=== PATIENT | male | born 1955 | race Two or more races ===

== ENCOUNTER 2020-02-25 17:40 | Inpatient (IN) | payer OTHER ==
[~2020-02-25] VITALS: Ht 167.6 cm; Wt 83.8 kg
[2020-02-25 18:50] LABS: Basophils # (auto) 0 10 ^3/uL (0-0.2); Eosinophils # (auto) 0 10 ^3/uL (0-0.8); Lymphocytes # (auto) 2.2 10 ^3/uL (0.4-5.4); Neutrophils # (auto) 5.6 10 ^3/uL (1.6-8.6)
[2020-02-25 18:51] LABS: Basophils % (auto) 0.3 % (0.0-2.0); Eosinophils % (auto) 0.3 % (0.0-7.0); Hematocrit 49.1 % (41.0-53.0); Hemoglobin 16.7 g/dL (13.5-17.5); Lymphocytes % (auto) 24.3 % (10.0-50.0); Mean Corpuscular Hemoglobin 34.1 pg (28.0-32.0); Mean Corpuscular Volume 100.3 fL (80.0-100.0); Monocytes # (auto) 1.3 10 ^3/uL (0-1.3); Monocytes % (auto) 13.9 % (0.0-12.0); Neutrophils % (auto) 61.2 % (37.0-80.0); Nucleated Red Blood Cells % 0.1 %; Platelet Count (auto) 202 10^3/uL (140-450); Red Blood Cells 4.89 10^6/uL (4.5-5.90); White Blood Cell 9.2 10^3/uL (4.4-10.8)
[2020-02-25 19:08] LABS: Albumin 3.4 g/dL (3.4-5.0); Calcium 8.6 mg/dL (8.5-10.1); Magnesium 2.5 mg/dL (1.6-2.6); Potassium 4.3 mmol/L (3.5-5.1)
[2020-02-25 19:11] LABS: Partial Thromboplastin Time 26.5 sec (23.0-31.2)
[2020-02-25 19:14] LABS: BUN/Creatinine Ratio 15.7; Bilirubin, Total 1.1 mg/dL (0.2-1.0)
[2020-02-25] MEDS ORDERED: ENOXAPARIN SOD 100 MG/1 ML SYRINGE SC ONE (20:15)
[2020-02-25] MEDS ORDERED: IOHEXOL 350 MG/ML 100ML IJ ONE (20:47)
[2020-02-26] MEDS ORDERED: ASPirin 81 mg TAB PO ONE ×2 (00:30→09:30)
[2020-02-26] MEDS ORDERED: MORPHINE SULF INJ 2 MG/ML SYRINGE 1ML IV PRN (00:30)
[2020-02-26] MEDS ORDERED: ONDANSETRON HCL 4 MG/2 ML VIAL IV PRN (00:30)
[2020-02-26] MEDS ORDERED: NITROGLYCERIN 0.4 MG SL TAB SL PRN (00:30)
[2020-02-26] MEDS ORDERED: TEMAZEPAM 15 MG CAP PO PRN (00:30)
[2020-02-26] MEDS ORDERED: ATORVASTATIN 20 MG TAB PO ONE (00:30)
[2020-02-26] MEDS ORDERED: ACETAMINOPHEN 325 MG TAB PO PRN (00:30)
[2020-02-26] MEDS: SODIUM CHLORIDE 0.9% 1,000 ML IV SCH ×2 (01:02→12:16)
[2020-02-26] MEDS: METOPROLOL TARTRATE 25 MG TAB PO SCH ×3 (01:03→22:08)
[2020-02-26 03:54] VITALS: BP 134/87
[2020-02-26] MEDS ORDERED: INFLUENZA QUAD 2020-2021 0.5 ML SYRG IM ONE (04:30)
[2020-02-26 08:00] VITALS: BP 140/84
[2020-02-26 09:06] LABS: Cholesterol 200 mg/dL (< 200); Triglycerides 155 mg/dL (< 150)
[2020-02-26 09:08] LABS: HDL Cholesterol 54 mg/dL (40-59); LDL Cholesterol 129 mg/dL (< 100)
[2020-02-26] MEDS ORDERED: HEPARIN 1,000 UNITS/ml 1ML VIAL IV ONE (09:30)
[2020-02-26] MEDS ORDERED: IOHEXOL 350 MG/ML 100ML IJ ONE ×2 (09:50→10:28)
[2020-02-26] MEDS ORDERED: LIDOCAINE 2%HCL (LOCAL ANESTH.) INJ 20ML MDV ONE (09:50)
[2020-02-26] MEDS ORDERED: ASPirin 81 mg TAB PO SCH (10:00)
[2020-02-26] MEDS ORDERED: ENOXAPARIN SOD 80 MG/0.8ML SYRINGE SC SCH (10:00)
[2020-02-26] MEDS ORDERED: ANGIOMAX 250 MG VIAL IV ONE (10:09)
[2020-02-26] MEDS ORDERED: fentaNYL CITRATE 100 MCG/2 ML VL ONE (10:09)
[2020-02-26] MEDS ORDERED: SODIUM CHL 0.9% 50 ML ONE (10:10)
[2020-02-26] MEDS ORDERED: MIDAZOLAM HCL 1MG/1ML-2 ML VIAL ONE (10:10)
[2020-02-26] MEDS ORDERED: TICAGRELOR 90 MG TAB ONE (10:39)
[2020-02-26] MEDS ORDERED: ASPirin 81 mg TAB ONE (10:39)
[2020-02-26] MEDS: ASPirin 81 mg TAB PO SCH (11:30)
[2020-02-26] MEDS: FAMOTIDINE 20 MG TAB PO SCH ×2 (11:56→22:08)
[2020-02-26] MEDS: LISINOPRIL 5 MG TAB PO SCH (11:57)
[2020-02-26 16:00] VITALS: BP 120/78
[2020-02-26] MEDS ORDERED: OPTISON 3ml Vial for INJ IV ONE (17:07)
[2020-02-26 22:00] VITALS: BP 117/75
[2020-02-26] MEDS ORDERED: ATORVASTATIN 20 MG TAB PO SCH (22:00)
[2020-02-26] MEDS: ATORVASTATIN 20 MG TAB PO SCH (22:00)
[2020-02-26] MEDS: TICAGRELOR 90 MG TAB PO SCH (22:06)
[2020-02-26] MEDS: APIXABAN 5 MG TAB PO SCH (22:06)
[2020-02-27] MEDS: SODIUM CHLORIDE 0.9% 1,000 ML IV SCH ×3 (00:02→23:34)
[2020-02-27 05:00] VITALS: BP 113/76
[2020-02-27 06:03] LABS: Basophils # (auto) 0 10 ^3/uL (0-0.2); Eosinophils # (auto) 0 10 ^3/uL (0-0.8); Lymphocytes % (auto) 17.2 % (10.0-50.0); Monocytes # (auto) 0.6 10 ^3/uL (0-1.3); White Blood Cell 5.5 10^3/uL (4.4-10.8)
[2020-02-27 06:11] LABS: Basophils % (auto) 0.2 % (0.0-2.0); Eosinophils % (auto) 0.6 % (0.0-7.0); Hematocrit 43.2 % (41.0-53.0); Hemoglobin 15.4 g/dL (13.5-17.5); Mean Corpuscular Hemoglobin 35.3 pg (28.0-32.0); Mean Corpuscular Hgb Conc. 35.7 g/dL (32.0-36.0); Monocytes % (auto) 11.6 % (0.0-12.0); Neutrophils # (auto) 3.9 10 ^3/uL (1.6-8.6); Neutrophils % (auto) 70.4 % (37.0-80.0); Platelet Count (auto) 189 10^3/uL (140-450); Red Blood Cells 4.37 10^6/uL (4.5-5.90); Red Cell Distribution Width 13.2 % (11.8-14.3)
[2020-02-27 06:47] LABS: Potassium 4.2 mmol/L (3.5-5.1)
[2020-02-27 06:59] LABS: Albumin 2.8 g/dL (3.4-5.0); BUN/Creatinine Ratio 19.5; Bilirubin, Total 1.1 mg/dL (0.2-1.0); Calcium 8.1 mg/dL (8.5-10.1); Total Protein 7.1 g/dL (6.4-8.2)
[2020-02-27] MEDS: ASPirin 81 mg TAB PO SCH (10:04)
[2020-02-27] MEDS: FAMOTIDINE 20 MG TAB PO SCH ×2 (10:04→22:59)
[2020-02-27] MEDS: APIXABAN 5 MG TAB PO SCH ×2 (10:04→22:58)
[2020-02-27] MEDS: TICAGRELOR 90 MG TAB PO SCH ×2 (10:04→22:57)
[2020-02-27] MEDS: LISINOPRIL 5 MG TAB PO SCH (10:05)
[2020-02-27] MEDS: METOPROLOL TARTRATE 25 MG TAB PO SCH ×2 (10:05→22:59)
[2020-02-27 18:10] VITALS: BP 105/70
[2020-02-27 22:00] VITALS: BP 118/75
[2020-02-27] MEDS: ATORVASTATIN 20 MG TAB PO SCH (22:58)
[2020-02-28 02:34] VITALS: BP 118/75
[2020-02-28 05:56] VITALS: BP 126/91
[2020-02-28 08:00] VITALS: BP 112/87
[2020-02-28 09:17] VITALS: BP 112/87
[2020-02-28] MEDS: APIXABAN 5 MG TAB PO SCH (09:49)
[2020-02-28] MEDS: ASPirin 81 mg TAB PO SCH (09:49)
[2020-02-28] MEDS: TICAGRELOR 90 MG TAB PO SCH (09:49)
[2020-02-28] MEDS: FAMOTIDINE 20 MG TAB PO SCH (09:49)
[2020-02-28] MEDS: METOPROLOL TARTRATE 25 MG TAB PO SCH (09:50)
[2020-02-28] MEDS: SODIUM CHLORIDE 0.9% 1,000 ML IV SCH (11:20)
[2020-02-28 12:22] VITALS: BP 112/87
[2020-02-28] MEDS ORDERED: SACUBITRIL-VALSARTAN 24mg/26mg TAB PO SCH (22:00)
[2020-03-04] MEDS ORDERED: APIXABAN 5 MG TAB PO SCH (22:00)
== END 2020-02-28 15:10 | disposition home or self-care (01) | DRG 246 ==
LOC: EDBD 17:40 → ER 17:40 → TELE 02-26 00:25 → TELE-CENTR 02-26 05:53
PROVIDERS: ADMIT Nurse Practitioner; ATTEND Internal Medicine
PROC: 027034Z Dilation of Coronary Artery, One Artery with Drug-eluting Intraluminal Device, Percutaneous Approach (ICD-10-PCS; principal; 2020-02-26)
PROC: 4A023N7 Measurement of Cardiac Sampling and Pressure, Left Heart, Percutaneous Approach (ICD-10-PCS; 2020-02-26)
PROC: B2111ZZ Fluoroscopy of Multiple Coronary Arteries using Low Osmolar Contrast (ICD-10-PCS; 2020-02-26)
PROC: B2151ZZ Fluoroscopy of Left Heart using Low Osmolar Contrast (ICD-10-PCS; 2020-02-26)
DX: I21.3 ST elevation (STEMI) myocardial infarction of unspecified site (principal); I50.41 Acute combined systolic (congestive) and diastolic (congestive) heart failure; I11.0 Hypertensive heart disease with heart failure; I51.3 Intracardiac thrombosis, not elsewhere classified; K80.20 Calculus of gallbladder without cholecystitis without obstruction; E66.9 Obesity, unspecified; Z68.29 Body mass index [BMI] 29.0-29.9, adult; E78.5 Hyperlipidemia, unspecified; Z83.3 Family history of diabetes mellitus; Z95.5 Presence of coronary angioplasty implant and graft; Z20.822 Contact with and (suspected) exposure to COVID-19
CPT/HCPCS: 36415; 71045; 71275; 80053; 80061; 83735; 83880; 84443; 84484; 85025; 85379; 85610; 85730; 87426; 93306; 96372; 99152; 99153; 99291; C1874; G0378; J2250; Q9956